=== PATIENT | male | born 1945 | race American Indian/Alaskan Native ===

== ENCOUNTER 2021-04-20 15:22 | Observation (INO) | payer MEDICARE ==
--- NOTE | 2021-04-20 17:15 | Emergency Department Report ---
ED General Adult HPI - General Chief complaint: Chest Pain Stated complaint: CHEST PAIN Time Seen by Provider: 04/20/21 16:43 Source: patient, family Mode of arrival: Wheelchair Limitations: No Limitations - History of Present Illness Initial comments: The patient presents to the emergency department from [facility] cardiology's office for repeated syncopal episodes. Patient has a history of orthostatic hypotension and was initially on midodrine but it was discontinued on his last hospitalization at [facility]. Patient denies any chest pain, shortness breath, or headache. -: unknown Severity scale (0 -10): 0 Consistency: constant Improves with: none Worsens with: none Associated Symptoms: denies other symptoms Treatments Prior to Arrival: none - Related Data Home Medications Medication Instructions Recorded Confirmed Last Taken Albuterol Mdi (or & Nicu Only) 2 puff IH Q4-6H PRN 06/25/14 06/09/17 03/19/17 [ProAir HFA Inhaler] 2 puffs Clopidogrel [Plavix] 75 mg PO QDAY 06/25/14 06/09/17 06/09/17 07:22 75 mg Famotidine [Pepcid] 40 mg PO BID 06/25/14 06/09/17 06/08/17 40 mg ISOSORBIDE MONOnitrate [Imdur ER] 120 mg PO QDAY 06/25/14 06/09/17 06/08/17 120 mg Mometasone/Formoterol [Dulera 100 8.8 gm IH BID 06/25/14 06/09/17 03/19/17 Mcg-5 Mcg Inhaler] Travoprost [Travatan Z] 2.5 ml OU QID 06/25/14 06/09/17 06/08/17 2.5ml carvediloL [Coreg] 6.25 mg PO BID 06/25/14 06/09/17 06/09/17 05:30 6.25mg Atorvastatin 40 mg PO DAILY 08/11/14 06/09/17 06/08/17 40 mg Dorzolamide 2% (Nf) [Trusopt] 1 drop INTRAOCULA BID 06/09/17 06/09/17 06/08/17 1 drop Previous Rx's Medication Instructions Recorded Last Taken Type ALBUTEROL NEB's [Proventil 0.083% 2.5 mg IH Q4HRT PRN nebu 06/10/17 Unknown Rx NEBS] Aspirin EC [Ecotrin] 325 mg PO QDAY tablet 06/10/17 Unknown Rx AtorvaSTATin [Lipitor] 40 mg PO QHS tablet 06/10/17 Unknown Rx Midodrine [Proamatine] 2.5 mg PO Q8HR tablet 06/10/17 Unknown Rx Allergies Allergy/AdvReac Type Severity Reaction Status Date / Time No Known Allergies Allergy Verified 04/20/21 15:25 ED Review of Systems ROS: Stated complaint: CHEST PAIN Other details as noted in HPI Comment: All other systems reviewed and negative Constitutional: denies: chills, fever Eyes: denies: eye pain, eye discharge, vision change ENT: denies: ear pain, throat pain Respiratory: denies: cough, shortness of breath, wheezing Cardiovascular: denies: chest pain, palpitations Endocrine: no symptoms reported Gastrointestinal: denies: abdominal pain, nausea, diarrhea Genitourinary: denies: urgency, dysuria Musculoskeletal: denies: back pain, joint swelling, arthralgia Skin: denies: rash, lesions Neurological: denies: headache, weakness, paresthesias Psychiatric: denies: anxiety, depression Hematological/Lymphatic: denies: easy bleeding, easy bruising ED Past Medical Hx - Past Medical History Hx Hypertension: Yes (1979's) Hx Heart Attack/AMI: No (Apical defect LAD and RCA territory, possible infarct) Hx Congestive Heart Failure: No Hx Diabetes: No Hx GERD: Yes Hx Liver Disease: No Hx Renal Disease: No (only stones) Hx Sickle Cell Disease: No Hx Arthritis: Yes (KNEES AND FEET) Hx Seizures: No Hx Kidney Stones: Yes (removed 2015) Hx Asthma: Yes (exercise induced, mild) Additional medical history: BPHCardiaac stents X's 2,Cataracts,Glaucoma,Myesthenia gravis - Surgical History Hx Coronary Stent: Yes (2008 x2) Hx Appendectomy: Yes (1973) Additional Surgical History: Cervical spine surgery - Social History Smoking Status: Former Smoker - Medications Home Medications: Home Medications Medication Instructions Recorded Confirmed Last Taken Type Albuterol Mdi (or & Nicu Only) 2 puff IH Q4-6H PRN 06/25/14 06/09/17 03/19/17 History [ProAir HFA Inhaler] 2 puffs Clopidogrel [Plavix] 75 mg PO QDAY 06/25/14 06/09/17 06/09/17 07:22 History 75 mg Famotidine [Pepcid] 40 mg PO BID 06/25/14 06/09/17 06/08/17 History 40 mg ISOSORBIDE MONOnitrate [Imdur ER] 120 mg PO QDAY 06/25/14 06/09/17 06/08/17 History 120 mg Mometasone/Formoterol [Dulera 100 8.8 gm IH BID 06/25/14 06/09/17 03/19/17 History Mcg-5 Mcg Inhaler] Travoprost [Travatan Z] 2.5 ml OU QID 06/25/14 06/09/17 06/08/17 History 2.5ml carvediloL [Coreg] 6.25 mg PO BID 06/25/14 06/09/17 06/09/17 05:30 History 6.25mg Atorvastatin 40 mg PO DAILY 08/11/14 06/09/17 06/08/17 History 40 mg Dorzolamide 2% (Nf) [Trusopt] 1 drop INTRAOCULA BID 06/09/17 06/09/17 06/08/17 History 1 drop ALBUTEROL NEB's [Proventil 0.083% 2.5 mg IH Q4HRT PRN nebu 06/10/17 Unknown Rx NEBS] Aspirin EC [Ecotrin] 325 mg PO QDAY tablet 06/10/17 Unknown Rx AtorvaSTATin [Lipitor] 40 mg PO QHS tablet 06/10/17 Unknown Rx Midodrine [Proamatine] 2.5 mg PO Q8HR tablet 06/10/17 Unknown Rx ED Physical Exam - General Limitations: No Limitations General appearance: alert, in no apparent distress - Head Head exam: Present: atraumatic, normocephalic - Eye Eye exam: Present: normal appearance, PERRL, EOMI - ENT ENT exam: Present: mucous membranes moist - Neck Neck exam: Present: normal inspection - Respiratory Respiratory exam: Present: normal lung sounds bilaterally. Absent: respiratory distress - Cardiovascular Cardiovascular Exam: Present: regular rate, normal rhythm. Absent: systolic murmur, diastolic murmur, rubs, gallop - GI/Abdominal GI/Abdominal exam: Present: soft, normal bowel sounds. Absent: distended, tenderness - Rectal Rectal exam: Present: deferred - Extremities Exam Extremities exam: Present: normal inspection - Back Exam Back exam: Present: normal inspection - Neurological Exam Neurological exam: Present: alert, oriented X3, CN II-XII intact. Absent: motor sensory deficit - Psychiatric Psychiatric exam: Present: normal affect, normal mood - Skin Skin exam: Present: warm, dry, intact, normal color. Absent: rash ED Medical Decision Making - Lab Data Result diagrams: 04/20/21 17:10 04/20/21 17:10 - EKG Data -: EKG Interpreted by Me EKG shows normal: sinus rhythm Rate: normal - Radiology Data Radiology results: report reviewed - Medical Decision Making results discussed with patient Cardiology will see the patient in consultation per our conversation Critical care attestation.: If time is entered above; I have spent that time in minutes in the direct care of this critically ill patient, excluding procedure time. ED Disposition Clinical Impression: Syncope Disposition: 01 HOME / SELF CARE / HOMELESS Is pt being admited?: Yes Does the pt Need Aspirin: No Condition: Stable Instructions: Syncope (ED) Referrals: PRIMARY CARE, [Primary Care Provider] - 3-5 Days
[2021-04-20 17:29] LABS: Basophils # (Auto) 0.1 K/mm3 (0.0-0.1); Basophils % (Auto) 0.8 % (0.0-1.8); Eosinophils % (Auto) 0.5 % (0.0-4.3); Hemoglobin 12.5 gm/dl (11.8-15.2); Lymphocytes # (Auto) 2.3 K/mm3 (1.2-5.4); Mean Corpuscular HGB Conc 33 % (32-34); Mean Corpuscular Volume 94 fl (84-94); Monocytes # (Auto) 0.6 K/mm3 (0.0-0.8); Monocytes % (Auto) 8.5 % (0.0-7.3); Platelet Count 218 K/mm3 (140-440); Red Blood Count 4.03 M/mm3 (3.65-5.03); Red Cell Distribution Width 14.8 % (13.2-15.2)
[2021-04-20 17:38] LABS: INR 1.06 (0.87-1.13)
[2021-04-20 17:39] LABS: Partial Thromboplastin Time 29.3 Sec. (24.2-36.6)
[2021-04-20 17:48] LABS: Alanine Aminotransferase 16 units/L (7-56); Albumin 3.8 g/dL (3.9-5); BUN/Creatinine Ratio 13; Blood Urea Nitrogen 15 mg/dL (9-20); Calcium 9.3 mg/dL (8.4-10.2); Hemolysis Index 7
--- NOTE | 2021-04-20 17:57 | XRay Report ---
CHEST 1 VIEW INDICATION / CLINICAL INFORMATION: ekg. COMPARISON: Chest radiograph 06/10/2017 FINDINGS: SUPPORT DEVICES: None. HEART / MEDIASTINUM: No significant abnormality. LUNGS / PLEURA: No significant pulmonary or pleural abnormality. No pneumothorax. ADDITIONAL FINDINGS: No significant additional findings. IMPRESSION: 1. No acute findings. Signer Name: Marquita Luong MD Signed: 04/20/2021 5:52 PM Workstation Name: [id number] [id number]
--- NOTE | 2021-04-20 18:16 | Cat Scan Report ---
. CT head/brain wo con INDICATION / CLINICAL INFORMATION: 76 years Male; syncope. TECHNIQUE: Routine CT head without contrast. All CT scans at this location are performed using CT dos e reduction for ALARA by means of automated exposure control. COMPARISON: None. FINDINGS: BRAIN / INTRACRANIAL CONTENTS: No acute hemorrhage, mass effect, midline shift, hydrocephalus, or acu te, large territorial infarct. Mild, diffuse cerebral and cerebellar atrophy. There are areas of decreased attenuation in the white matter of the cerebral hemispheres. These are n onspecific findings and may be related to microangiopathy (hypertension, diabetes, atherosclerosis), given the patient's age. It might be difficult to evaluate for small areas of ischemia without diffus ion imaging by MRI. CRANIOCERVICAL JUNCTION: No significant abnormality. ORBITS: No significant abnormality of visualized orbits. SINUSES / MASTOIDS: Left sphenoid sinus is completely opacified with findings extending into the post erior ethmoids on the left. High attenuation material noted, which may be related to chronic secretio ns or a fungal/hemorrhagic component of sinusitis. ADDITIONAL FINDINGS: No significant atherosclerotic disease appreciated. IMPRESSION: 1. No focal mass, hemorrhage, hydrocephalus, or acute, large territorial infarct. Signer Name: Cm Arana MD, III Signed: 04/20/2021 6:11 PM Workstation Name: [email or web address]
[2021-04-20] MEDS ORDERED: SODIUM CHLORIDE 0.9% 1000 ML 1,000 ML IV SCH (23:45)
[2021-04-20] MEDS ORDERED: traMADol 50 MG TAB PO PRN (23:47)
[2021-04-20] MEDS ORDERED: MORPHINE 4 MG/1 ML INJ IV PRN (23:47)
[2021-04-20] MEDS ORDERED: ACETAMINOPHEN 325 MG TAB PO PRN (23:47)
[2021-04-20] MEDS ORDERED: ALBUTEROL 2.5 MG/3 ML NEBU IH PRN (23:49)
--- NOTE | 2021-04-20 23:55 | History and Physical Report ---
History of Present Illness Date of examination: 04/20/21 Date of admission: 04/20/21 19:24 Chief complaint: Syncope History of present illness: 76 years old male with history of hypertension, GERD, arthritis, asthma, cardiac a stent, CAD was brought to the emergency room from [facility] cardiology's office for repeated syncopal episodes. Patient has a history of orthostatic hypotension and was initially on midodrine but it was discontinued on his last hospitalization at [facility]. Patient denies any chest pain, shortness breath, or headache. In the ER initial cardiac enzyme is negative troponin is 0.010. Initial CT scan shows no acute intracranial abnormality we will going to admit the patient we will put the patient on chest pain pathway. Will resume midodrine and will consult cardiology for evaluation Past History Past Medical History: CAD (Asthma), GERD, hypertension, other Past Surgical History: Other (Cardiac a stent) Medications and Allergies Allergies Allergy/AdvReac Type Severity Reaction Status Date / Time No Known Allergies Allergy Verified 04/20/21 15:25 Home Medications Medication Instructions Recorded Confirmed Last Taken Type Albuterol Mdi (or & Nicu Only) 2 puff IH Q4-6H PRN 06/25/14 06/09/17 03/19/17 History [ProAir HFA Inhaler] 2 puffs Clopidogrel [Plavix] 75 mg PO QDAY 06/25/14 06/09/17 06/09/17 07:22 History 75 mg Famotidine [Pepcid] 40 mg PO BID 06/25/14 06/09/17 06/08/17 History 40 mg ISOSORBIDE MONOnitrate [Imdur ER] 120 mg PO QDAY 06/25/14 06/09/17 06/08/17 History 120 mg Mometasone/Formoterol [Dulera 100 8.8 gm IH BID 06/25/14 06/09/17 03/19/17 History Mcg-5 Mcg Inhaler] Travoprost [Travatan Z] 2.5 ml OU QID 06/25/14 06/09/17 06/08/17 History 2.5ml carvediloL [Coreg] 6.25 mg PO BID 06/25/14 06/09/17 06/09/17 05:30 History 6.25mg Atorvastatin 40 mg PO DAILY 08/11/14 06/09/1706/08/18 History 40 mg Dorzolamide 2% (Nf) [Trusopt] 1 drop INTRAOCULA BID 06/09/17 06/09/17 06/08/17 History 1 drop ALBUTEROL NEB's [Proventil 0.083% 2.5 mg IH Q4HRT PRN nebu 06/10/17 Unknown Rx NEBS] Aspirin EC [Ecotrin] 325 mg PO QDAY tablet 06/10/17 Unknown Rx AtorvaSTATin [Lipitor] 40 mg PO QHS tablet 06/10/17 Unknown Rx Midodrine [Proamatine] 2.5 mg PO Q8HR tablet 06/10/17 Unknown Rx Review of Systems All systems: negative Cardiovascular: chest pain, syncope Exam - Constitutional Vitals: Temp Pulse Resp BP Pulse Ox 98.8 F 62 17 133/70 98 04/20/21 20:09 04/20/21 21:45 04/20/21 21:45 04/20/21 21:45 04/20/21 21:47 General appearance: Present: no acute distress, well-nourished - EENT Eyes: Present: PERRL ENT: hearing intact, clear oral mucosa - Neck Neck: Present: supple, normal ROM - Respiratory Respiratory effort: normal Respiratory: bilateral: diminished - Cardiovascular Heart Sounds: Present: S1 & S2. Absent: rub, click - Extremities Extremities: pulses symmetrical, No edema Peripheral Pulses: within normal limits - Abdominal General gastrointestinal: Present: soft, non-tender, non-distended, normal bowel sounds Male genitourinary: Present: normal - Integumentary Integumentary: Present: clear, warm, dry - Musculoskeletal Musculoskeletal: gait normal, strength equal bilaterally - Psychiatric Psychiatric: appropriate mood/affect, intact judgment & insight - Neurologic Neurologic: CNII-XII intact, moves all extremities HEART Score - HEART Score Troponin: Troponin T < 0.010 ng/mL (0.00-0.029) 04/20/21 17:10 Results - Labs CBC & Chem 7: 04/20/21 17:10 04/20/21 17:10 Labs: Laboratory Last Values WBC 7.0 K/mm3 (4.5-11.0) 04/20/21 17:10 RBC 4.03 M/mm3 (3.65-5.03) 04/20/21 17:10 Hgb 12.5 gm/dl (11.8-15.2) 04/20/21 17:10 Hct 38.0 % (35.5-45.6) 04/20/21 17:10 MCV 94 fl (84-94) 04/20/21 17:10 MCH 31 pg (28-32) 04/20/21 17:10 MCHC 33 % (32-34) 04/20/21 17:10 RDW 14.8 % (13.2-15.2) 04/20/21 17:10 Plt Count 218 K/mm3 (140-440) 04/20/21 17:10 Lymph % (Auto) 33.0 % (13.4-35.0) 04/20/21 17:10 [place] % (Auto) 8.5 % (0.0-7.3) H 04/20/21 17:10 Eos % (Auto) 0.5 % (0.0-4.3) 04/20/21 17:10 Baso % (Auto) 0.8 % (0.0-1.8) 04/20/21 17:10 Lymph # (Auto) 2.3 K/mm3 (1.2-5.4) 04/20/21 17:10 [place] # (Auto) 0.6 K/mm3 (0.0-0.8) 04/20/21 17:10 Eos # (Auto) 0.0 K/mm3 (0.0-0.4) 04/20/21 17:10 Baso # (Auto) 0.1 K/mm3 (0.0-0.1) 04/20/21 17:10 Seg Neutrophils % 57.2 % (40.0-70.0) 04/20/21 17:10 Seg Neutrophils # 4.0 K/mm3 (1.8-7.7) 04/20/21 17:10 PT 15.0 Sec. (12.2-14.9) H 04/20/21 17:10 INR 1.06 (0.87-1.13) 04/20/21 17:10 APTT 29.3 Sec. (24.2-36.6) 04/20/21 17:10 Sodium 143 mmol/L (137-145) 04/20/21 17:10 Potassium 3.1 mmol/L (3.6-5.0) L 04/20/21 17:10 Chloride 99.9 mmol/L (98-107) 04/20/21 17:10 Carbon Dioxide 27 mmol/L (22-30) 04/20/21 17:10 Anion Gap 19 mmol/L 04/20/21 17:10 BUN 15 mg/dL (9-20) 04/20/21 17:10 Creatinine 1.2 mg/dL (0.8-1.3) 04/20/21 17:10 Estimated GFR > 60 ml/min 04/20/21 17:10 BUN/Creatinine Ratio 13 % 04/20/21 17:10 Glucose 99 mg/dL (75-100) 04/20/21 17:10 Calcium 9.3 mg/dL (8.4-10.2) 04/20/21 17:10 Total Bilirubin 1.50 mg/dL (0.1-1.2) H 04/20/21 17:10 AST 14 units/L (5-40) 04/20/21 17:10 ALT 16 units/L (7-56) 04/20/21 17:10 Alkaline Phosphatase 84 units/L (35-129) 04/20/21 17:10 Troponin T < 0.010 ng/mL (0.00-0.029) 04/20/21 17:10 NT-Pro-B Natriuret Pep 215.7 pg/mL (0-900) 04/20/21 17:10 Total Protein 6.6 g/dL (6.3-8.2) 04/20/21 17:10 Albumin 3.8 g/dL (3.9-5) L 04/20/21 17:10 Albumin/Globulin Ratio 1.4 % 04/20/21 17:10 - Imaging and Cardiology Chest x-ray: report reviewed CT Scan - head: report reviewed Assessment and Plan VTE prophylaxis?: Chemical Plan of care discussed with patient/family: Yes - Patient Problems (1) Syncope Current Visit: Yes Status: Acute Plan to address problem: Admit the patient to the medical telemetry. Aspirin 325 mg p.o. daily. Lipitor 40 mg p.o. daily. Normal saline at the rate of 100 cc/h. Serial serial cardiac enzymes. Echocardiogram. Cardiology consult. Will resume midodrine (2) CAD (coronary artery disease) Current Visit: No Status: Chronic Plan to address problem: Aspirin 325 mg p.o. daily. Plavix 75 mg p.o. daily. Lipitor 40 mg p.o. daily. Echocardiogram. Cardiology consult (3) HTN (hypertension) Current Visit: No Status: Chronic Plan to address problem: Coreg 6.25 mg p.o. twice daily. We will continue the other home medication. We will monitor the blood pressure closely (4) Hyperlipidemia Current Visit: No Status: Chronic Plan to address problem: Lipitor 40 mg p.o. daily we will recheck the lipid panel. Cardiology evaluation (5) Orthostatic hypotension Current Visit: No Status: Chronic Plan to address problem: Normal saline at the rate of 100 cc/h. Will resume midodrine 2.5 mg p.o. every 8 hours. Cardiology evaluation (6) DVT prophylaxis Current Visit: Yes Status: Acute Plan to address problem: Heparin 5000 units subcu every 8 hours for DVT prophylaxis. Protonix 40 mg p.o. daily for GI prophylaxis. Patient is a full code
[2021-04-21 01:15] LABS: Basophils # (Auto) 0.1 K/mm3 (0.0-0.1); Basophils % (Auto) 1.1 % (0.0-1.8); Eosinophils # (Auto) 0.1 K/mm3 (0.0-0.4); Eosinophils % (Auto) 0.9 % (0.0-4.3); Hematocrit 36.5 % (35.5-45.6); Hemoglobin 12.1 gm/dl (11.8-15.2); Lymphocytes # (Auto) 1.9 K/mm3 (1.2-5.4); Lymphocytes % (Auto) 30.8 % (13.4-35.0); Mean Corpuscular HGB Conc 33 % (32-34); Mean Corpuscular Volume 95 fl (84-94); Monocytes # (Auto) 0.5 K/mm3 (0.0-0.8); Monocytes % (Auto) 8.7 % (0.0-7.3); Platelet Count 204 K/mm3 (140-440); Red Blood Count 3.85 M/mm3 (3.65-5.03); Red Cell Distribution Width 14.9 % (13.2-15.2)
[2021-04-21 01:34] LABS: BUN/Creatinine Ratio 15; Blood Urea Nitrogen 16 mg/dL (9-20); Calcium 9.1 mg/dL (8.4-10.2); Hemolysis Index 7
[2021-04-21] MEDS ORDERED: MIDODRINE 2.5 MG TAB PO SCH ×3 (06:00→14:00)
[2021-04-21] MEDS ORDERED: HEPARIN 5,000 UNIT/1 ML VIAL SUB-Q SCH (06:00)
[2021-04-21 08:28] VITALS: BP 153/84
--- NOTE | 2021-04-21 08:42 | Progress Note ---
Assessment and Plan Assessment and plan: History of present illness: 76 years old male with history of hypertension, GERD, arthritis, asthma, cardiac a stent, CAD was brought to the emergency room from [facility] cardiology's office for repeated syncopal episodes. Patient has a history of orthostatic hypotension and was initially on midodrine but it was discontinued on his last hospitalization at [facility]. Patient denies any chest pain, shortness breath, or headache. In the ER initial cardiac enzyme is negative troponin is 0.010. Initial CT scan shows no acute intracranial abnormality we will going to admit the patient we will put the patient on chest pain pathway. Will resume midodrine and will consult cardiology for evaluation. Hospital Course to date: 04/21: Assessment and Plan: (1) Syncope Current Visit: Yes Status: Acute Plan to address problem: Admit the patient to the medical telemetry. Aspirin 325 mg p.o. daily. Lipitor 40 mg p.o. daily. Normal saline at the rate of 100 cc/h. Serial serial cardiac enzymes. Echocardiogram. Cardiology consult. midodrine resumed on admission (2) CAD (coronary artery disease) Current Visit: No Status: Chronic Plan to address problem: Aspirin 325 mg p.o. daily. Plavix 75 mg p.o. daily. Lipitor 40 mg p.o. daily. Echocardiogram. Cardiology consult (3) HTN (hypertension) Current Visit: No Status: Chronic Plan to address problem: Coreg 6.25 mg p.o. twice daily. We will continue the other home medication. We will monitor the blood pressure closely (4) Hyperlipidemia Current Visit: No Status: Chronic Plan to address problem: Lipitor 40 mg p.o. daily we will recheck the lipid panel. Cardiology evaluation (5) Orthostatic hypotension Current Visit: No Status: Chronic Plan to address problem: Normal saline at the rate of 100 cc/h. Will resume midodrine 2.5 mg p.o. every 8 hours. Cardiology evaluation (6) DVT prophylaxis Current Visit: Yes Status: Acute Plan to address problem: Heparin 5000 units subcu every 8 hours for DVT prophylaxis. Protonix 40 mg p.o. daily for GI prophylaxis. Patient is a full code Hospitalist Physical - Constitutional Vitals: Temp Pulse Resp BP Pulse Ox 98.1 F 75 18 153/84 100 04/21/21 07:44 04/21/21 07:44 12/04/21 07:44 04/21/21 07:44 04/21/21 07:44 General appearance: Present: no acute distress, well-nourished HEART Score - HEART Score Troponin: Troponin T < 0.010 ng/mL (0.00-0.029) 04/21/21 05:01 Results - Labs CBC & Chem 7: 04/21/21 01:00 04/21/21 01:00 Labs: Laboratory Last Values WBC 6.2 K/mm3 (4.5-11.0) 04/21/21 01:00 RBC 3.85 M/mm3 (3.65-5.03) 04/21/21 01:00 Hgb 12.1 gm/dl (11.8-15.2) 04/21/21 01:00 Hct 36.5 % (35.5-45.6) 04/21/21 01:00 MCV 95 fl (84-94) H 04/21/21 01:00 MCH 31 pg (28-32) 04/21/21 01:00 MCHC 33 % (32-34) 04/21/21 01:00 RDW 14.9 % (13.2-15.2) 04/21/21 01:00 Plt Count 204 K/mm3 (140-440) 04/21/21 01:00 Lymph % (Auto) 30.8 % (13.4-35.0) 04/21/21 01:00 Drew % (Auto) 8.7 % (0.0-7.3) H 04/21/21 01:00 Eos % (Auto) 0.9 % (0.0-4.3) 04/21/21 01:00 Baso % (Auto) 1.1 % (0.0-1.8) 04/21/21 01:00 Lymph # (Auto) 1.9 K/mm3 (1.2-5.4) 04/21/21 01:00 Drew # (Auto) 0.5 K/mm3 (0.0-0.8) 04/21/21 01:00 Eos # (Auto) 0.1 K/mm3 (0.0-0.4) 04/21/21 01:00 Baso # (Auto) 0.1 K/mm3 (0.0-0.1) 04/21/21 01:00 Seg Neutrophils % 58.5 % (40.0-70.0) 04/21/21 01:00 Seg Neutrophils # 3.6 K/mm3 (1.8-7.7) 04/21/21 01:00 PT 15.0 Sec. (12.2-14.9) H 04/20/21 17:10 INR 1.06 (0.87-1.13) 04/20/21 17:10 APTT 29.3 Sec. (24.2-36.6) 04/20/21 17:10 Sodium 144 mmol/L (137-145) 04/21/21 01:00 Potassium 2.8 mmol/L (3.6-5.0) L* 04/21/21 01:00 Chloride 104.7 mmol/L (98-107) 04/21/21 01:00 Carbon Dioxide 27 mmol/L (22-30) 04/21/21 01:00 Anion Gap 15 mmol/L 04/21/21 01:00 BUN 16 mg/dL (9-20) 04/21/21 01:00 Creatinine 1.1 mg/dL (0.8-1.3) 04/21/21 01:00 Estimated GFR > 60 ml/min 04/21/21 01:00 BUN/Creatinine Ratio 15 % 04/21/21 01:00 Glucose 92 mg/dL (75-100) 04/21/21 01:00 Calcium 9.1 mg/dL (8.4-10.2) 04/21/21 01:00 Total Bilirubin 1.50 mg/dL (0.1-1.2) H 04/20/21 17:10 AST 14 units/L (5-40) 04/20/21 17:10 ALT 16 units/L (7-56) 04/20/21 17:10 Alkaline Phosphatase 84 units/L (35-129) 04/20/21 17:10 Troponin T < 0.010 ng/mL (0.00-0.029) 04/21/21 05:01 NT-Pro-B Natriuret Pep 215.7 pg/mL (0-900) 04/20/21 17:10 Total Protein 6.6 g/dL (6.3-8.2) 04/20/21 17:10 Albumin 3.8 g/dL (3.9-5) L 04/20/21 17:10 Albumin/Globulin Ratio 1.4 % 04/20/21 17:10 [place]/IV: Voiding Method Urinal Active Medications - Current Medications Current Medications: Generic Name Dose Route Start Last Admin Trade Name Freq PRN Reason Stop Dose Admin Acetaminophen 650 mg 04/20/21 23:47 Acetaminophen 325 Mg Tab PO Q6H PRN Pain, Mild (1-3) Albuterol 2.5 mg 04/20/21 23:49 Albuterol 2.5 Mg/3 Ml Nebu IH Q4HRT PRN Shortness Of Breath Aspirin 325 mg 04/21/21 10:00 Aspirin Ec 325 Mg Tab PO QDAY [facility] Atorvastatin Calcium 40 mg 04/21/21 22:00 Atorvastatin 40 Mg Tab PO QHS [facility] Carvedilol 6.25 mg 04/21/21 10:00 Carvedilol 6.25 Mg Tab PO BID [facility] Clopidogrel Bisulfate 75 mg 04/21/21 10:00 Clopidogrel 75 Mg Tab PO QDAY [facility] Heparin Sodium (Porcine) 5,000 unit 04/21/21 06:00 04/21/21 05:26 Heparin 5,000 Unit/1 Ml Vial SUB-Q 5,000 unit Q8HR LUCIO Administration Sodium Chloride 1,000 mls @ 100 mls/hr 04/20/21 23:45 04/21/21 02:57 Nacl 0.9% 1000 Ml IV 100 mls/hr DIRECT LUCIO Administration Isosorbide Mononitrate 120 mg 04/21/21 10:00 Isosorbide Mononitrate Er 60 Mg Tab PO QDAY [facility] Midodrine 2.5 mg 04/21/21 06:00 04/21/21 05:26 Midodrine 2.5 Mg Tab PO 2.5 mg Q8HR LUCIO Administration Miscellaneous Medication 1 drop 04/21/21 10:00 Dorzolamide 2% (Nf) INTRAOCULA BID [facility] Miscellaneous Medication 8.8 gm 04/21/21 10:00 Mometasone/Formoterol [Dulera 100 Mcg-5 Mcg Inhaler] IH BID [facility] Miscellaneous Medication 2.5 ml 04/21/21 10:00 Travoprost [Travatan Z] OU QID [facility] Morphine Sulfate 2 mg 04/20/21 23:47 Morphine 4 Mg/1 Ml Inj IV Q5MIN PRN Chest Pain unrelieved by NTG Pantoprazole Sodium 40 mg 04/21/21 10:00 Pantoprazole 40 Mg Tab PO QDAY LUCIO Sodium Chloride 10 ml 04/20/21 23:47 Sodium Chloride 0.9% 10 Ml Flush Syringe IV PRN PRN LINE FLUSH Tramadol HCl 50 mg 04/20/21 23:47 Tramadol 50 Mg Tab PO Q6H PRN Pain, Moderate (4-6)
[2021-04-21] MEDS ORDERED: MOMETASONE IH SCH (10:00)
[2021-04-21] MEDS ORDERED: DORZOLAMIDE 2% INTRAOCULA SCH (10:00)
[2021-04-21] MEDS ORDERED: CLOPIDOGREL 75 MG TAB PO SCH (10:00)
[2021-04-21] MEDS ORDERED: PANTOPRAZOLE 40 MG TAB PO SCH (10:00)
[2021-04-21] MEDS ORDERED: TRAVOPROST OU SCH (10:00)
[2021-04-21] MEDS ORDERED: [UNRECOGNIZED DRUG - OTHER] IH SCH (10:00)
[2021-04-21] MEDS ORDERED: carvediloL 6.25 MG TAB PO SCH (10:00)
[2021-04-21] MEDS ORDERED: FORMOTEROL IH SCH (10:00)
[2021-04-21] MEDS ORDERED: ASPIRIN EC 325 MG TAB PO SCH (10:00)
--- NOTE | 2021-04-21 11:11 | Discharge Summary ---
Providers - Providers Date of Admission: 04/20/21 19:24 Date of discharge: 04/21/21 Attending physician: TAYLOR CESAR MD 04/20/21 Consult to Cardiac Rehabilitation [CONS] Routine Reason For Exam: Phase I 04/20/21 23:47 Consult to Cardiology [CONS] Routine Consulting Provider: WIN GALEANA Reason For Exam: Syncope Primary care physician: PRINT [facility] FEEDER Hospitalization Reason for admission: syncope Condition: Fair Hospital course: HPI: 76 years old male with history of hypertension, GERD, arthritis, asthma, cardiac a stent, CAD was brought to the emergency room from [facility] cardiology's office for repeated syncopal episodes. Patient has a history of orthostatic hypotension and was initially on midodrine but it was discontinued on his last hospitalization at [facility]. Patient denies any chest pain, shortness breath, or headache. In the ER initial cardiac enzyme is negative troponin is 0.010. Initial CT scan shows no acute intracranial abnormality we will going to admit the patient we will put the patient on chest pain pathway. Will resume midodrine and will consult cardiology for evaluation. Hospital Course to date: 04/21: Patient was admitted for syncope. 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 Patient blood pressure has been normotensive or slightly elevated entire admission. Advised patient to resume all home cardiac meds and to follow-up outpatient with cardiology and outpatient primary care physician. Offered rolling walker to patient on discharge however patient states that he uses a rolling walker at home. (1) Syncope Current Visit: Yes Status: Acute Plan to address problem: Admit the patient to the medical telemetry. Aspirin 325 mg p.o. daily. Lipitor 40 mg p.o. daily. Normal saline at the rate of 100 cc/h. Serial serial cardiac enzymes. Echocardiogram. Cardiology consult. Will resume midodrine (2) CAD (coronary artery disease) Current Visit: No Status: Chronic Plan to address problem: Aspirin 325 mg p.o. daily. Plavix 75 mg p.o. daily. Lipitor 40 mg p.o. daily. Echocardiogram. Cardiology consult (3) HTN (hypertension) Current Visit: No Status: Chronic Plan to address problem: Coreg 6.25 mg p.o. twice daily. We will continue the other home medication. We will monitor the blood pressure closely (4) Hyperlipidemia Current Visit: No Status: Chronic Plan to address problem: Lipitor 40 mg p.o. daily we will recheck the lipid panel. Cardiology evaluation (5) Orthostatic hypotension Current Visit: No Status: Chronic Plan to address problem: Normal saline at the rate of 100 cc/h. Will resume midodrine 2.5 mg p.o. every 8 hours. Cardiology evaluation (6) DVT prophylaxis Current Visit: Yes Status: Acute Plan to address problem: Heparin 5000 units subcu every 8 hours for DVT prophylaxis. Protonix 40 mg p.o. daily for GI prophylaxis. Patient is a full code Disposition: 01 HOME / SELF CARE / HOMELESS Final Discharge Diagnosis (Prints w/discharge instructions): Syncope Time spent for discharge: 25 Core Measure Documentation - Palliative Care Palliative Care/ Comfort Measures: Not Applicable - Core Measures Any of the following diagnoses?: none Exam - Physical Exam Narrative exam: General appearance: Present: no acute distress, well-nourished - EENT Eyes: Present: PERRL ENT: hearing intact, clear oral mucosa - Neck Neck: Present: supple, normal ROM - Respiratory Respiratory effort: normal Respiratory: bilateral: diminished - Cardiovascular Heart Sounds: Present: S1 & S2. Absent: rub, click - Extremities Extremities: pulses symmetrical, No edema Peripheral Pulses: within normal limits - Abdominal General gastrointestinal: Present: soft, non-tender, non-distended, normal bowel sounds Male genitourinary: Present: normal - Integumentary Integumentary: Present: clear, warm, dry - Musculoskeletal Musculoskeletal: gait normal, strength equal bilaterally - Psychiatric Psychiatric: appropriate mood/affect, intact judgment & insight - Neurologic Neurologic: CNII-XII intact, moves all extremities - Constitutional Vitals: Temp Pulse Resp BP Pulse Ox 98.1 F 75 18 153/84 100 04/21/21 07:44 04/21/21 07:44 04/21/21 07:44 04/21/21 07:44 04/21/21 07:44 Plan Follow up with: CHARLES SILVESTRE MD [Primary Care Provider] - 3-5 Days
--- NOTE | 2021-04-21 12:06 | Consultation ---
History of Present Illness Consult date: 04/21/21 Requesting physician: TAYLOR CESAR Consult reason: syncope History of present illness: 76-year-old male with known history of coronary arterial disease hyperlipidemia Parkinson's has had multiple hospitalizations for syncope. Patient has orthostatic hypotension. Patient was at [facility] last month for similar type episodes and was discharged without midodrine. Patient presents to outpatient pharmacology professor office yesterday with low blood pressure and to syncopal episodes patient was admitted. Cardiac enzymes negative CAT scan head was negative echo shows normally function without significant regurgitation patient received IV hydration. Blood pressure is controlled. Denies any chest pain shortness of breath. Past History Past Medical History: CAD (Asthma), GERD, hypertension, other (parkinson) Past Surgical History: Other (Cardiac a stent) Medications and Allergies Allergies Allergy/AdvReac Type Severity Reaction Status Date / Time No Known Allergies Allergy Verified 04/21/21 00:08 Home Medications Medication Instructions Recorded Confirmed Last Taken Type Albuterol Mdi (or & Nicu Only) 2 puff IH Q4-6H PRN 06/25/14 06/09/17 03/19/17 History [ProAir HFA Inhaler] 2 puffs Clopidogrel [Plavix] 75 mg PO QDAY 06/25/14 06/09/17 06/09/17 07:22 History 75 mg Famotidine [Pepcid] 40 mg PO BID 06/25/14 06/09/17 06/08/17 History 40 mg Atorvastatin 40 mg PO DAILY 08/11/14 06/09/17 06/08/17 History 40 mg AtorvaSTATin [Lipitor] 40 mg PO QHS tablet 06/10/17 Unknown Rx Aspirin EC [Ecotrin] 325 mg PO QDAY tablet 04/21/21 Unknown Rx AtorvaSTATin [Lipitor] 40 mg PO QHS tablet 04/21/21 Unknown Rx ISOSORBIDE MONOnitrate [Imdur ER] 120 mg PO QDAY tablet 04/21/21 Unknown Rx carvediloL [Coreg] 6.25 mg PO BID tablet 04/21/21 Unknown Rx Active Meds: Active Medications Acetaminophen (Acetaminophen 325 Mg Tab) 650 mg PO Q6H PRN PRN Reason: Pain, Mild (1-3) Albuterol (Albuterol 2.5 Mg/3 Ml Nebu) 2.5 mg IH Q4HRT PRN PRN Reason: Shortness Of Breath Aspirin (Aspirin Ec 325 Mg Tab) 325 mg PO QDAY [facility] Atorvastatin Calcium (Atorvastatin 40 Mg Tab) 40 mg PO QHS [facility] Carvedilol (Carvedilol 6.25 Mg Tab) 6.25 mg PO BID [facility] Clopidogrel Bisulfate (Clopidogrel 75 Mg Tab) 75 mg PO QDAY [facility] Heparin Sodium (Porcine) (Heparin 5,000 Unit/1 Ml Vial) 5,000 unit SUB-Q Q8HR [facility] Last Admin: 04/21/21 05:26 Dose: 5,000 unit Documented by: Sodium Chloride (Nacl 0.9% 1000 Ml) 1,000 mls @ 100 mls/hr IV DIRECT LUCIO Last Admin: 04/21/21 02:57 Dose: 100 mls/hr Documented by: Isosorbide Mononitrate (Isosorbide Mononitrate Er 60 Mg Tab) 120 mg PO QDAY [facility] Midodrine (Midodrine 2.5 Mg Tab) 2.5 mg PO Q8HR [facility] Miscellaneous Medication (Dorzolamide 2% (Nf)) 1 drop INTRAOCULA BID [facility] Miscellaneous Medication (Mometasone/Formoterol [Dulera 100 Mcg-5 Mcg Inhaler]) 8.8 gm IH BID [facility] Miscellaneous Medication (Travoprost [Travatan Z]) 2.5 ml OU QID [facility] Morphine Sulfate (Morphine 4 Mg/1 Ml Inj) 2 mg IV Q5MIN PRN PRN Reason: Chest Pain unrelieved by NTG Pantoprazole Sodium (Pantoprazole 40 Mg Tab) 40 mg PO QDAY [facility] Sodium Chloride (Sodium Chloride 0.9% 10 Ml Flush Syringe) 10 ml IV PRN PRN PRN Reason: LINE FLUSH Tramadol HCl (Tramadol 50 Mg Tab) 50 mg PO Q6H PRN PRN Reason: Pain, Moderate (4-6) Review of Systems All systems: negative (as per hpi) Physical Examination Vital Signs Temp Pulse Resp BP Pulse Ox 98.8 F 66 17 128/69 97 04/20/21 20:09 04/20/21 20:09 04/20/21 20:09 04/20/21 20:09 04/20/21 20:09 General appearance: no acute distress, well-nourished HEENT: Positive: PERRL, Mucus Membranes Moist Neck: Positive: neck supple, trachea midline Cardiac: Positive: Reg Rate and Rhythm, S1/S2. Negative: Audible Murmur Lungs: Positive: clear to auscultation, Normal Breath Sounds Abdomen: Positive: Soft, Active Bowel Sounds. Negative: Tender, Distended Male genitourinary: Positive: normal Skin: Positive: Clear Incision: Cardiac Cath Site Musculoskeletal: No Pain, Normal Range of Motion Extremities: Present: normal. Absent: edema Results 04/21/21 01:00 04/21/21 01:00 Cardiac Enzymes 04/20/21 Range/Units 17:10 AST 14 (5-40) units/L Coagulation 04/20/21 Range/Units 17:10 PT 15.0 H (12.2-14.9) Sec. INR 1.06 (0.87-1.13) APTT 29.3 (24.2-36.6) Sec. CBC 04/20/21 04/21/21 Range/Units 17:10 01:00 WBC 7.0 6.2 (4.5-11.0) K/mm3 RBC 4.03 3.85 (3.65-5.03) M/mm3 Hgb 12.5 12.1 (11.8-15.2) gm/dl Hct 38.0 36.5 (35.5-45.6) % Plt Count 218 204 (140-440) K/mm3 Lymph # (Auto) 2.3 1.9 (1.2-5.4) K/mm3 Glenn # (Auto) 0.6 0.5 (0.0-0.8) K/mm3 Eos # (Auto) 0.0 0.1 (0.0-0.4) K/mm3 Baso # (Auto) 0.1 0.1 (0.0-0.1) K/mm3 Comprehensive Metabolic Panel 04/20/21 04/21/21 Range/Units 17:10 01:00 Sodium 143 144 (137-145) mmol/L Potassium 3.1 L 2.8 L* (3.6-5.0) mmol/L Chloride 99.9 104.7 (98-107) mmol/L Carbon Dioxide 27 27 (22-30) mmol/L BUN 15 16 (9-20) mg/dL Creatinine 1.2 1.1 (0.8-1.3) mg/dL Glucose 99 92 (75-100) mg/dL Calcium 9.3 9.1 (8.4-10.2) mg/dL AST 14 (5-40) units/L ALT 16 (7-56) units/L Alkaline Phosphatase 84 (35-129) units/L Total Protein 6.6 (6.3-8.2) g/dL Albumin 3.8 L (3.9-5) g/dL - Imaging and Cardiology Echo: report reviewed (normal lv function mild mr ) Cardiac cath: report reviewed (2018 lt main patent, lad distal 70% small vessel lcx patent, rca pci and normal lv function ) EKG interpretations - Telemetry EKG Rhythm: Sinus Rhythm (nsr non specific st-t) Assessment and Plan 76-year-old male with known coronary arterial disease hypertension hyperlipidemia orthostatic hypotension Parkinson's has 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 Reinstate midodrine 5 mg 3 times a day restart Toprol-XL 25 mg once a day patient cardiac work-up is been negative. Is not orthostatic here. Will follow with primary pharmacology professor in 1 to 2 weeks. - Patient Problems (1) Syncope Current Visit: Yes Status: Chronic Qualifiers: Syncope type: vasovagal syncope Qualified Code(s): R55 - Syncope and collapse (2) CAD (coronary artery disease) Current Visit: No Status: Chronic Qualifiers: Coronary Disease-Associated Artery/Lesion type: [place] artery (3) HTN (hypertension) Current Visit: No Status: Chronic Qualifiers: Hypertension type: primary hypertension Qualified Code(s): I10 - Essential (primary) hypertension (4) Hyperlipidemia Current Visit: No Status: Chronic Qualifiers: Hyperlipidemia type: mixed hyperlipidemia Qualified Code(s): E78.2 - Mixed hyperlipidemia (5) Orthostatic hypotension Current Visit: No Status: Chronic (6) PAT (paroxysmal atrial tachycardia) Current Visit: No Status: Chronic
[2021-04-21] MEDS ORDERED: METOPROLOL SUCCINATE XL 25 MG TAB PO SCH (13:00)
--- NOTE | 2021-04-22 09:31 | Electrocardiograph Report ---
[facility] Test Date: 2021-04-20 Test Time: 15:24:36 Pat Name: NATASHA MCCORMICK Department: Room: A470 1 Gender: M Mechanical Oxidizer: MADELEINE : 1945 Requested By: SANDRA PERSAUD Order Number: [id number] Reading MD: Artem Kauffman Measurements Intervals [place] Rate: 76 P: -27 AK: 144 QRS: -62 QRSD: 137 T: 57 QT: 448 QTc: 505 Interpretive Statements Sinus rhythm RBBB and LAFB No previous ECG available for comparison Electronically Signed On 04-22-2021 9:31:21 EST by Artem Kauffman
--- NOTE | 2021-04-22 09:39 | Electrocardiograph Report ---
[facility] Test Date: 2021-04-21 Test Time: 07:32:26 Pat Name: NATASHA MCCORMICK Department: Room: A470 1 Gender: M Concrete Block Maker: HELADIO : 1945 Requested By: JOAN YE Order Number: [id number] Reading MD: Artem Kauffman Measurements Intervals [place] Rate: 70 P: -10 TN: 152 QRS: -55 QRSD: 148 T: 31 QT: 468 QTc: 507 Interpretive Statements Sinus rhythm RBBB and LAFB Compared to ECG 04/20/2021 15:24:36 Prolonged QT interval no longer present Electronically Signed On 04-22-2021 9:38:49 EST by Artem Kauffman
[2021-04-22] MEDS ORDERED: ASPIRIN EC 81 MG TAB PO SCH (10:00)
== END 2021-04-21 12:40 | disposition home or self-care (01) ==
LOC: ED 15:22 → 4A 19:24
PROVIDERS: ADMIT Hospitalist; ATTEND Internal Medicine
DX: R55 Syncope and collapse (principal); I25.10 Atherosclerotic heart disease of native coronary artery without angina pectoris; I10 Essential (primary) hypertension; I47.1 Supraventricular tachycardia; K21.9 Gastro-esophageal reflux disease without esophagitis; E78.5 Hyperlipidemia, unspecified; M19.90 Unspecified osteoarthritis, unspecified site; H40.9 Unspecified glaucoma; G70.00 Myasthenia gravis without (acute) exacerbation; J45.909 Unspecified asthma, uncomplicated; Z95.1 Presence of aortocoronary bypass graft; Z79.82 Long term (current) use of aspirin; Z79.899 Other long term (current) drug therapy; Z98.890 Other specified postprocedural states; Z87.891 Personal history of nicotine dependence; Z87.442 Personal history of urinary calculi
CPT/HCPCS: 36415; 70450; 71045; 80048; 80053; 83880; 84484; 85025; 85610; 85730; 93005; 93306; 94640; 96360; 96361; 96372; 99285; G0378; J1644; J7030; Q0162